=== PATIENT | male | born 1975 | race Hispanic/Latino ===

== ENCOUNTER 2017-12-19 14:41 | Emergency (ER) | payer SELFPAY ==
[2017-12-19 14:42] VITALS: BMI 26.6
--- NOTE | 2017-12-19 15:18 | ED PDOC ---
Arrival/HPI - General Chief Complaint: Alcohol Ingestion Time Seen by Provider: 12/19/17 14:55 Historian: Patient EM Caveat: Intoxicated - History of Present Illness Narrative History of Present Illness (Text): 12/19/17 15:14 42 year old male, whose past medical history includes rhabdomyolysis and ETOH abuse, presents from home via EMS for ETOH abuse. as per ems, pt "was found in alley". upon arrival. pt is arousable to sternal rub. noted previous visits for similar. 12/19/17 21:09 Time/Duration: Prior to Arrival Past Medical History - Provider Review Nursing Documentation Reviewed: Yes - Past History Past History: Unable to Obtain - Infectious Disease Hx of Infectious Diseases: None - Tetanus Immunization Tetanus Immunization: Unknown - Past Medical History Past Medical History: No Previous - Cardiac Hx Cardiac Disorders: No - Pulmonary Hx Respiratory Disorders: No - Neurological Hx Seizures: Yes - HEENT Hx HEENT Disorder: No - Renal Hx Renal Disorder: No - Endocrine/Metabolic Hx Endocrine Disorders: No - Hematological/Oncological Hx Blood Disorders: No - Integumentary Hx Dermatological Disorder: No - Musculoskeletal/Rheumatological Hx Musculoskeletal Disorders: No - Gastrointestinal Hx Gastrointestinal Disorders: Yes (APPENDECTOMY) - Genitourinary/Gynecological Hx Genitourinary Disorders: No - Psychiatric Hx Depression: No Hx Substance Use: No (unknown) - Past Surgical History Past Surgical History: No Previous - Surgical History Hx Appendectomy: Yes - Anesthesia Hx Anesthesia: No - Suicidal Assessment Feels Threatened In Home Enviroment: No Family/Social History - Physician Review Nursing Documentation Reviewed: Yes Family/Social History: No Known Family HX Smoking Status: Unknown If Ever Smoked Hx Alcohol Use: Yes Frequency of alcohol use: Daily Hx Substance Use: No (unknown) Hx Substance Use Treatment: No Allergies/Home Meds Allergies/Adverse Reactions: Allergies atropine Allergy (Verified 12/19/17 14:50) SHORTNESS OF BREATH Home Medications: Home Meds Medication Instructions Recorded Confirmed Unobtainable [Unobtainable] 04/22/14 12/19/17 Review of Systems - Review of Systems Systems not reviewed;Unavailable: Intoxicated Physical Exam - Physical Exam Physical Exam Limitations: Intoxication Vital Signs Temp Pulse Resp BP Pulse Ox 12/20/17 06:01 65 18 114/82 100 12/20/17 04:10 62 16 96/65 L 96 12/20/17 02:48 62 14 97/60 L 97 12/20/17 00:58 67 18 110/56 L 100 12/19/17 23:00 97 F L 92 H 19 141/88 96 12/19/17 21:31 67 18 131/53 L 96 12/19/17 18:56 54 L 19 104/57 L 99 Temperature: Afebrile Blood Pressure: Normal Pulse: Regular Respiratory Rate: Normal Appearance: Positive for: Non-Toxic, Comfortable, Ill-Appearing, Unkept, Other ( arousable to sternal rup) Pain Distress: None Mental Status: Positive for: Lethargic - Systems Exam Head: Present: Atraumatic, Normocephalic Pupils: Present: PERRL Extroacular Muscles: Present: EOMI Conjunctiva: Present: Normal Mouth: Present: Moist Mucous Membranes Neck: Present: Normal Range of Motion Respiratory/Chest: Present: Clear to Auscultation, Good Air Exchange. No: Respiratory Distress, Accessory Muscle Use Cardiovascular: Present: Regular Rate and Rhythm, Normal S1, S2. No: Murmurs Abdomen: No: Tenderness, Distention, Peritoneal Signs Back: Present: Normal Inspection Upper Extremity: Present: Normal Inspection. No: Cyanosis, Edema Lower Extremity: Present: Normal Inspection. No: Edema Neurological: Present: GCS=15, CN II-XII Intact, Speech Normal Skin: Present: Rashes (right hip 2-3 cm area of erythema), Other Psychiatric: Present: Alert, Oriented x 3, Normal Insight, Normal Concentration Medical Decision Making ED Course and Treatment: 12/19/17 16:42 Impression: 42 year old male presents to the emergency department for alcohol intoxication. also noted right hip cellultis - Plan: -- EKG -- Labs -- CT Head -- Urinalysis -- Reassess and disposition Prior Visits: Notes and results from previous visits were reviewed. Progress Notes: 12/19/17 21:10 pt reassesed pt increasingly arousable. admits to etoh use, head ct pending. denies trauma. 12/19/17 22:02 12/20/17 15:[address], repeat na, and final dispo. - Lab Interpretations Lab Results: 12/19/17 16:25 12/19/17 16:25 Lab Results 12/19/17 20:10: Urine Opiates Screen Negative, Urine Methadone Screen Negative, Ur Barbiturates Screen Negative, Ur Phencyclidine Scrn Negative, Ur Amphetamines Screen Negative, U Benzodiazepines Scrn Negative, U Oth Cocaine Metabols Negative, U Cannabinoids Screen Negative 12/19/17 20:10: Urine Color Yellow, Urine Appearance Clear, Urine pH 7.5, Ur Specific [place] 1.025, Urine Protein 100 H, Urine Glucose (UA) Negative, Urine Ketones Trace H, Urine Blood Negative, Urine Nitrate Negative, Urine Bilirubin Negative, Urine Urobilinogen 1.0 H, Ur Leukocyte Esterase Negative, Urine RBC 2 - 5, Urine WBC 0 - 2, Ur Epithelial Cells 1 - 3, Amorphous Sediment Trace 12/19/17 16:25: Alcohol, Quantitative 474 H* 12/19/17 16:25: Salicylates < 1 L, Acetaminophen < 10.0 L 12/19/17 16:25: WBC 7.3 D, RBC 4.49, Hgb 15.7, Hct 43.6, MCV 97.1, MCH 35.0, MCHC 36.0, RDW 12.7, Plt Count 177, MPV 9.4, Gran % 44.8 L, Lymph % (Auto) 50.8 H, [place] % (Auto) 2.3, Eos % (Auto) 1.8, Baso % (Auto) 0.3, Gran # 3.28, Lymph # (Auto) 3.7 H, [place] # (Auto) 0.2, Eos # (Auto) 0.1, Baso # (Auto) 0.02 12/19/17 16:25: Sodium 152 H, Potassium 3.7, Chloride 108 H, Carbon Dioxide 26, Anion Gap 21 H, BUN 10, Creatinine 0.6 L, Est GFR ( Amer) > 60, Est GFR ( Non-Af Amer) > 60, Random Glucose 104, Calcium 8.9, Magnesium 2.0, Total Bilirubin 0.4, AST 41, ALT 40, Alkaline Phosphatase 68, Total Creatine Kinase 203, Total Protein 7.6, Albumin 4.5, Globulin 3.1, Albumin/Globulin Ratio 1.4 - RAD Interpretation Radiology Orders: 12/19/17 16:34 HEAD W/O CONTRAST [CT] Stat - Medication Orders Current Medication Orders: Discontinued Medications Sodium Chloride (Sodium Chloride 0.9%) 1,000 mls @ 999 mls/hr IV .Q1H1M STA Stop: 12/19/17 18:03 Last Admin: 12/19/17 17:41 Dose: 999 mls/hr eMAR Start Stop Document 12/19/17 17:41 [email or web address] (Rec: 12/19/17 17:42 [email or web address] [id number]) Intravenous Solution Start Date 12/19/17 Start Time 17:42 Ceftriaxone Sodium (Rocephin 1 Gram Ivpb) 1 gm in 100 mls @ 100 mls/hr IVPB DAILY VINCENT PRN Reason: Protocol Vancomycin HCl (Vancomycin 1gm) 1 gm in 250 mls @ 167 mls/hr IVPB STAT STA PRN Reason: Protocol Stop: 12/19/17 22:35 Last Admin: 12/19/17 23:30 Dose: 167 mls/hr eMAR Start Stop Document 12/19/17 23:30 RG (Rec: 12/19/17 23:32 RG [id number]) Intravenous Solution Start Date 12/19/17 Start Time 23:30 Ceftriaxone Sodium (Rocephin 1 Gram Ivpb) 1 gm in 100 mls @ 100 mls/hr IVPB STAT STA PRN Reason: Protocol Stop: 12/19/17 22:58 Last Admin: 12/19/17 22:36 Dose: 100 mls/hr eMAR Start Stop Document 12/19/17 22:36 RG (Rec: 12/19/17 22:37 RG [id number]) Intravenous Solution Start Date 12/19/17 Start Time 22:36 Ibuprofen (Motrin Tab) 600 mg PO STAT STA Stop: 12/20/17 00:52 Last Admin: 12/20/17 01:00 Dose: 600 mg MAR Pain/Vitals Document 12/20/17 01:00 RG (Rec: 12/20/17 01:38 [id number]) Pain Reassessment Is This A Pain ReAssessment? Yes Sleep Is patient sleeping during reassessment? No Presence of Pain Presence of Pain Yes Pain Scale Used Pain Scale Used Numeric Location Pain Location Body Site Generalized Description Intermittent Pain Behavior Facial Grimacing - Scribe Statement The provider has reviewed the documentation as recorded by the Minalibthais Delgado Provider Scribe Attestation: All medical record entries made by the Jess were at my direction and personally dictated by me. I have reviewed the chart and agree that the record accurately reflects my personal performance of the history, physical exam, medical decision making, and the department course for this patient. I have also personally directed, reviewed, and agree with the discharge instructions and disposition. Disposition/Present on Arrival - Present on Arrival Any Indicators Present on Arrival: No History of DVT/PE: No History of Uncontrolled Diabetes: No Urinary Catheter: No History of Decub. Ulcer: No History Surgical Site Infection Following: None - Disposition Have Diagnosis and Disposition been Completed?: Yes Diagnosis: Intoxication, Alcohol intoxication Disposition: ELOPEMENT - ER ONLY Disposition Time: 06:00 Condition: FAIR Forms: [facility] (Hungarian)
[2017-12-19 16:54] LABS: BASO # 0.02 K/mm3 (0.0-2.0); BASO % 0.3 % (0.0-3.0); EOS # 0.1 (0.0-0.7); EOS % 1.8 % (1.5-5.0); GRAN # 3.28 (1.4-6.5); GRAN % 44.8 % (50.0-68.0); HEMOGLOBIN 15.7 g/dL (14.0-18.0); LYMPH # 3.7 (1.2-3.4); LYMPH % 50.8 % (22.0-35.0); MEAN CELL VOLUME 97.1 fl (80.0-105.0); MEAN PLATELET VOLUME 9.4 fl (7.0-11.0); MONO # 0.2 (0.1-0.6); MONO % 2.3 % (1.0-6.0); RBC 4.49 10^6/uL (3.5-6.1); RED CELL DISTRIBUTION WIDTH 12.7 % (11.5-14.5); WHITE BLOOD COUNT 7.3 10^3/ul (4.5-11.0)
[2017-12-19 17:01] LABS: ALB/GLOB RATIO 1.4 (1.1-1.8); ALBUMIN 4.5 g/dL (3.0-4.8); ALT/SGPT 40 U/L (7-56); AST/SGOT 41 U/L (17-59); BLOOD UREA NITROGEN 10 mg/dL (7-21); CALCIUM 8.9 mg/dL (8.4-10.5); GFR NON-AFRICAN AMERICAN > 60
[2017-12-19 17:03] LABS: ACETAMINOPHEN < 10.0 ug/ml (10.0-20.0); SALICYLATE < 1 mg/dL (2.0-20.0)
[2017-12-19] MEDS ORDERED: Sodium Chloride 0.9% 1,000 ML IV STA (17:03)
[2017-12-19 20:41] LABS: PH,URINE 7.5 (4.7-8.0); URINE BILIRUBIN NEGATIVE (NEGATIVE); URINE BLOOD NEGATIVE (NEGATIVE); URINE GLUCOSE (UA) NEGATIVE (NEGATIVE); URINE LEUKOCYTE ESTERASE NEGATIVE Leu/uL (NEGATIVE); URINE PROTEIN 100 mg/dL (<30 mg/dL)
[2017-12-19 20:47] LABS: URINE APPEARANCE CLEAR (CLEAR); URINE COLOR YELLOW (YELLOW)
[2017-12-19 21:04] LABS: URINE AMORPHOUS SEDIMENT TRACE; URINE WBC 0 - 2 /hpf (0-6)
[2017-12-19 21:06] LABS: BARBITURATES, UR NEGATIVE (NEGATIVE); BENZODIAZEPINES, UR NEGATIVE (NEGATIVE); OPIATES, UR NEGATIVE (NEGATIVE); PHENCYCLIDINE, UR NEGATIVE (NEGATIVE)
[2017-12-19] MEDS ORDERED: Vancomycin 1gm in NS 250ml 1 GM/250 ML BAG IVPB STA (21:06)
[2017-12-19] MEDS ORDERED: cefTRIAXone 1 gm 1 GM/100 ML BAG IVPB STA (21:59)
[2017-12-19 23:34] VITALS: TEMP 97
--- NOTE | 2017-12-20 00:10 | ED PDOC ---
Physical Exam - Physical Exam Physical Exam Limitations: Intoxication Vital Signs Temp Pulse Resp BP Pulse Ox 12/20/17 06:01 65 18 114/82 100 12/20/17 04:10 62 16 96/65 L 96 12/20/17 02:48 62 14 97/60 L 97 12/20/17 00:58 67 18 110/56 L 100 12/19/17 23:00 97 F L 92 H 19 141/88 96 12/19/17 21:31 67 18 131/53 L 96 12/19/17 18:56 54 L 19 104/57 L 99 - Systems Exam Head: Present: Atraumatic, Normocephalic Pupils: Present: PERRL Extroacular Muscles: Present: EOMI Conjunctiva: Present: Normal Mouth: Present: Moist Mucous Membranes Neck: Present: Normal Range of Motion Respiratory/Chest: Present: Clear to Auscultation, Good Air Exchange Cardiovascular: Present: Regular Rate and Rhythm Abdomen: No: Tenderness, Distention Upper Extremity: Present: Normal Inspection Lower Extremity: Present: Normal Inspection Neurological: Present: Speech Normal, Motor Func Grossly Intact Medical Decision Making ED Course and Treatment: 12/19/17 23:00 Patient endorsed to me by Dr. Rodriguez. Patient, whose past medical history includes rhabdomyolysis and ETOH abuse brought in for EtOH abuse after being found in alley as per EMS. Currently awaiting CT Head results. 12/19/2017 23:[address] IMPRESSION: No evidence of pathology. Dictator: Chandana Beebe MD 12/20/17 05:00 Informed patient that he clears at 07:00 and that he will require abx script Pt states that he will wait. Pt notes to be clinically sober at this time. Normal neuro exam. GCS 15, normal finger to nose and with good gait. 12/20/17 06:38 Informed by RN that patient had eloped Called pt at home phone to inform him to return given necessary abx: no answer. - Lab Interpretations Lab Results: 12/19/17 16:25 12/19/17 16:25 Lab Results 12/19/17 20:10: Urine Opiates Screen Negative, Urine Methadone Screen Negative, Ur Barbiturates Screen Negative, Ur Phencyclidine Scrn Negative, Ur Amphetamines Screen Negative, U Benzodiazepines Scrn Negative, U Oth Cocaine Metabols Negative, U Cannabinoids Screen Negative 12/19/17 20:10: Urine Color Yellow, Urine Appearance Clear, Urine pH 7.5, Ur Specific [place] 1.025, Urine Protein 100 H, Urine Glucose (UA) Negative, Urine Ketones Trace H, Urine Blood Negative, Urine Nitrate Negative, Urine Bilirubin Negative, Urine Urobilinogen 1.0 H, Ur Leukocyte Esterase Negative, Urine RBC 2 - 5, Urine WBC 0 - 2, Ur Epithelial Cells 1 - 3, Amorphous Sediment Trace 12/19/17 16:25: Alcohol, Quantitative 474 H* 12/19/17 16:25: Salicylates < 1 L, Acetaminophen < 10.0 L 12/19/17 16:25: WBC 7.3 D, RBC 4.49, Hgb 15.7, Hct 43.6, MCV 97.1, MCH 35.0, MCHC 36.0, RDW 12.7, Plt Count 177, MPV 9.4, Gran % 44.8 L, Lymph % (Auto) 50.8 H, [place] % (Auto) 2.3, Eos % (Auto) 1.8, Baso % (Auto) 0.3, Gran # 3.28, Lymph # (Auto) 3.7 H, [place] # (Auto) 0.2, Eos # (Auto) 0.1, Baso # (Auto) 0.02 12/19/17 16:25: Sodium 152 H, Potassium 3.7, Chloride 108 H, Carbon Dioxide 26, Anion Gap 21 H, BUN 10, Creatinine 0.6 L, Est GFR ( Amer) > 60, Est GFR ( Non-Af Amer) > 60, Random Glucose 104, Calcium 8.9, Magnesium 2.0, Total Bilirubin 0.4, AST 41, ALT 40, Alkaline Phosphatase 68, Total Creatine Kinase 203, Total Protein 7.6, Albumin 4.5, Globulin 3.1, Albumin/Globulin Ratio 1.4 - RAD Interpretation Radiology Orders: 12/19/17 16:34 HEAD W/O CONTRAST [CT] Stat - Medication Orders Current Medication Orders: Discontinued Medications Sodium Chloride (Sodium Chloride 0.9%) 1,000 mls @ 999 mls/hr IV .Q1H1M STA Stop: 12/19/17 18:03 Last Admin: 12/19/17 17:41 Dose: 999 mls/hr eMAR Start Stop Document 12/19/17 17:41 [email or web address] (Rec: 12/19/17 17:42 [email or web address] [id number]) Intravenous Solution Start Date 12/19/17 Start Time 17:42 Ceftriaxone Sodium (Rocephin 1 Gram Ivpb) 1 gm in 100 mls @ 100 mls/hr IVPB DAILY VINCENT PRN Reason: Protocol Vancomycin HCl (Vancomycin 1gm) 1 gm in 250 mls @ 167 mls/hr IVPB STAT STA PRN Reason: Protocol Stop: 12/19/17 22:35 Last Admin: 12/19/17 23:30 Dose: 167 mls/hr eMAR Start Stop Document 12/19/17 23:30 RG (Rec: 12/19/17 23:32 RG [id number]) Intravenous Solution Start Date 12/19/17 Start Time 23:30 Ceftriaxone Sodium (Rocephin 1 Gram Ivpb) 1 gm in 100 mls @ 100 mls/hr IVPB STAT STA PRN Reason: Protocol Stop: 12/19/17 22:58 Last Admin: 12/19/17 22:36 Dose: 100 mls/hr eMAR Start Stop Document 12/19/17 22:36 RG (Rec: 12/19/17 22:37 RG [id number]) Intravenous Solution Start Date 12/19/17 Start Time 22:36 Ibuprofen (Motrin Tab) 600 mg PO STAT STA Stop: 12/20/17 00:52 Last Admin: 12/20/17 01:00 Dose: 600 mg MAR Pain/Vitals Document 12/20/17 01:00 RG (Rec: 12/20/17 01:38 [id number] Pain Reassessment Is This A Pain ReAssessment? Yes Sleep Is patient sleeping during reassessment? No Presence of Pain Presence of Pain Yes Pain Scale Used Pain Scale Used Numeric Location Pain Location Body Site Generalized Description Intermittent Pain Behavior Facial Grimacing - Scribe Statement The provider has reviewed the documentation as recorded by the Jess Bishop Provider Scribe Attestation: All medical record entries made by the Scribe were at my direction and personally dictated by me. I have reviewed the chart and agree that the record accurately reflects my personal performance of the history, physical exam, medical decision making, and the department course for this patient. I have also personally directed, reviewed, and agree with the discharge instructions and disposition. Disposition/Present on Arrival - Present on Arrival Any Indicators Present on Arrival: No History of DVT/PE: No History of Uncontrolled Diabetes: No Urinary Catheter: No History of Decub. Ulcer: No History Surgical Site Infection Following: None - Disposition Have Diagnosis and Disposition been Completed?: Yes Diagnosis: Intoxication, Alcohol intoxication Disposition: LEFT W/O TREATMENT - ER ONLY Disposition Time: 06:38 Condition: FAIR Forms: [facility] (Greek)
[2017-12-20 06:03] VITALS: BP 114/82; PULSE 65; RESP 18; O2SAT 100
--- NOTE | 2017-12-20 08:14 | CT ---
Date of service: 12/19/2017 PROCEDURE: CT HEAD WITHOUT CONTRAST. HISTORY: Altered mental status COMPARISON: 04/22/2016. TECHNIQUE: Axial computed tomography images were obtained through the head/brain without intravenous contrast. Radiation dose: Total exam DLP = 1928.08 mGy-cm. This CT exam was performed using one or more of the following dose reduction techniques: Automated exposure control, adjustment of the mA and/or kV according to patient size, and/or use of iterative reconstruction technique. FINDINGS: HEMORRHAGE: No intracranial hemorrhage. BRAIN: Rodriguez-white matter differentiation is preserved. There is no mass, mass effect or abnormal extra-axial fluid collection. There is no territorial infarction. The midline sagittal structures are normal. VENTRICLES: The ventricles are normal in size, shape and configuration. CALVARIUM: Unremarkable. PARANASAL SINUSES: Mild polypoid mucosal thickening and retention//polyp in the right maxillary sinus. The remaining included paranasal sinuses are clear. MASTOID AIR CELLS: Unremarkable as visualized. No inflammatory changes. Cerumen in bilateral external auditory canals. OTHER FINDINGS: None. IMPRESSION: No acute intracranial abnormality. A preliminary report was provided by [employer] services.
[2017-12-20] MEDS ORDERED: cefTRIAXone 1 gm 1 GM/100 ML BAG IVPB SCH (10:00)
== END 2017-12-20 06:35 | disposition left against medical advice (07) ==
LOC: ED 14:41
DX: F10.129 Alcohol abuse with intoxication, unspecified (principal)
CPT/HCPCS: 70450; 80053; 81001; 82550; 83735; 85025; 87040; 87149; 87181; 87205; 96374; 96375; 99284; G0480; J0696; J7030